=== PATIENT | male | born 1965 | race Caucasian/White ===

== ENCOUNTER 2023-07-03 10:02 | Emergency (ER) | payer BC, OTHER ==
[2023-07-03] MEDS ORDERED: Lidocaine 1% 5 ML VIAL INJECT ONE (10:10)
== END 2023-07-03 10:54 | disposition home or self-care (01) ==
LOC: DL.ED 10:02
DX: S61.411A Laceration without foreign body of right hand, initial encounter (principal); W25.XXXA Contact with sharp glass, initial encounter
CPT/HCPCS: 12002; 99282; J3490